=== PATIENT | male | born 1990 | race African-American/Black ===

== ENCOUNTER 2018-07-18 14:14 | Emergency (ER) | payer SELFPAY ==
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
== END 2018-07-18 16:37 | disposition home or self-care (01) ==
LOC: ER 14:14
DX: S00.90XA Unspecified superficial injury of unspecified part of head, initial encounter (principal); Y04.2XXA Assault by strike against or bumped into by another person, initial encounter; Y99.0 Civilian activity done for income or pay; N50.811 Right testicular pain
CPT/HCPCS: 70450; 76870; 99284

== ENCOUNTER 2018-07-18 19:10 | Emergency (ER) | payer SELFPAY ==
--- OUTSIDE RECORDS SUMMARY | 2018-07-18 19:12 | XMS REPORT ---
:1990 [facility] Address [address] [place] [address] Care Team Providers Name Role Phone Unavailable Unavailable Unavailable Payers Payer Name Policy Type Policy Number Effective Date Expiration Date Problems This patient has no known problems. Allergies, Adverse Reactions, Alerts Allergy Allergy Status Severity Reaction(s) Onset Inactive Treating Comments Name Type Date Date Clinician No Known DA Active U 2017-09 Allergies -23 00:00:0 0 Medications This patient has no known medications.
--- OUTSIDE RECORDS SUMMARY | 2018-07-18 19:12 | XMS REPORT | Clinical Summary ---
:1990 Author Organization [facility] Address [address] [place] [address] Care Team Providers Name Role Phone Asked, No Pcp Primary Care Provider Unavailable Allergies No Known Allergies Medications Not on file Active Problems Not on file Social History Tobacco Use Types Packs/Day Years Used Date Never Smoker Alcohol Use Drinks/Week oz/Week Comments No Sex Assigned at Date Recorded Not on file Job Start Date Occupation Industry Not on file Not on file Not on file Travel History Travel Start Travel End No recent travel history available. Last Filed Vital Signs Not on file Plan of Treatment Not on file Results Not on fileafter 07/17/2017 Advance Directives Patient has advance care planning documents on file. For more information, please contact:[facility] [place] [address]
[2018-07-18 19:57] LABS: Absolute Lymphocytes (CBC) 1.5 K/uL (0.7-4.9); Absolute Monocytes 0.5 K/uL (0.1-1.3); Absolute Neutrophil 8.8 K/uL (1.8-8.0); Basophils % 1.9 % (0-1.3); Hematocrit 42.7 % (39.6-49.0); Lymphocytes % 13.8 % (15.3-44.8); MPV 8.6 fL (7.6-11.3); Monocytes % 4.3 % (3.3-12.3); RBC Red Blood Cell Count 5.21 M/uL (4.33-5.43)
[2018-07-18 20:06] LABS: BUN Blood Urea Nitrogen 10 mg/dL (7-18); Bicarbonate 26 mmol/L (21-32); Glucose Level 97 mg/dL (74-106); Potassium 4.1 mmol/L (3.5-5.1); Sodium Level 138 mmol/L (136-145); Troponin (Emerg Dept Use Only) < 0.02 ng/mL (0.0-0.045)
--- NOTE | 2018-07-18 21:04 | RAD REPORT ---
EXAM DESCRIPTION: RAD - Chest Pa And Lat (2 Views) - 07/18/2018 7:59 pm CLINICAL HISTORY: Right-sided chest pain COMPARISON: None. TECHNIQUE: PA and lateral views of the chest were obtained. FINDINGS: The lungs are clear. Heart size is normal and central vasculature is within normal limit s. No pleural effusion or pneumothorax seen. No acute bony finding noted. No aortic abnormality. IMPRESSION: No acute cardiopulmonary process.
[2018-07-18 21:42] LABS: Blood Morphology Comment NOT SEEN (NOT SEEN); Platelet Estimate ADEQ; Urine White Blood Cell Casts OK
--- NOTE | 2018-07-18 22:38 | ER ---
Nurse's Notes [facility] Name: Louann Morataya Age: 27 yrs Sex: Male : 1990 Arrival Date: 07/18/2018 Time: 19:12 Bed 30 Private MD: Diagnosis: Chest pain, unspecified Presentation: 07/18 19:13 Presenting complaint: EMS states: patient complains of right sided non-radiating chest mg2 pain, headache, and palpitation today. EKG on scene is NSR. Transition of care: snf. Onset of symptoms was July 18, 2018. Risk Assessment: Do you want to hurt yourself or someone else? Patient reports no desire to harm self or others. Initial Sepsis Screen: Does the patient meet any 2 criteria? No. Patient's initial sepsis screen is negative. Does the patient have a suspected source of infection? No. Patient's initial sepsis screen is negative. Care prior to arrival: None. 19:13 Method Of Arrival: EMS: [facility] mg2 19:13 Acuity: JEROME 3 mg2 Historical: - Allergies: 19:19 No Known Allergies; mg2 - Home Meds: 19:19 None [Active]; mg2 - PMHx: 19:19 Hypertension; Asthma; mg2 - PSHx: 19:19 None; mg2 - Immunization history:: Flu vaccine is not up to date. - Social history:: Smoking status: Patient/guardian denies using tobacco, Patient/guardian denies using alcohol, street drugs, IV drugs. - Ebola Screening: : No symptoms or risks identified at this time. Screenin:20 Abuse screen: Denies threats or abuse. Denies injuries from another. Nutritional mg2 screening: No deficits noted. Tuberculosis screening: No symptoms or risk factors identified. Fall Risk None identified. Assessment: 19:33 General: Appears in no apparent distress. comfortable, Behavior is calm, cooperative. mg2 Pain: Complains of pain in chest, head Pain does not radiate. Pain currently is 10 out of 10 on a pain scale. Quality of pain is described as aching, Pain began gradually, Is intermittent. Neuro: Level of Consciousness is awake, alert, obeys commands, Oriented to person, place, time, situation. Neuro: Reports headache. Cardiovascular: Capillary refill < 3 seconds Patient's skin is warm and dry. Respiratory: Airway is patent Respiratory effort is even, unlabored, Respiratory pattern is regular, symmetrical. GI: No signs and/or symptoms were reported involving the gastrointestinal system. : No signs and/or symptoms were reported regarding the genitourinary system. EENT: No signs and/or symptoms were reported regarding the EENT system. Derm: Skin is intact, is healthy with good turgor, Skin is pink, warm \T\ dry. normal. Musculoskeletal: Circulation, motion, and sensation intact. Capillary refill < 3 seconds. Vital Signs: 19:18 BP 142 / 100; Pulse 78; Resp 18; Temp 99.1; Pulse Ox 99% ; Weight 111.13 kg; Height 5 mg2 ft. 6 in. (167.64 cm); Pain 10/10; 21:14 BP 144 / 80; Pulse 79; Resp 18; Pulse Ox 100% on R/A; Pain 0/10; mg2 22:27 Pulse 81; Resp 18; Pulse Ox 100% on R/A; mg2 22:58 BP 140 / 90; Pulse 70; Resp 18; Pulse Ox 100% on R/A; Pain 0/10; mg2 19:18 Body Mass Index 39.54 (111.13 kg, 167.64 cm) mg2 ED Course: 19:12 Patient arrived in ED. ds1 19:13 Mynor Castro RN is Primary Nurse. mg2 19:13 Deepak Olsen MD is Attending Physician. 19:18 Triage completed. mg2 19:20 Arm band placed on. mg2 19:33 No provider procedures requiring assistance completed. Inserted saline lock: 20 gauge mg2 in right antecubital area, using aseptic technique. Blood collected. 19:34 Patient has correct armband on for positive identification. mg2 19:57 XRAY Chest Pa And Lat (2 Views) In Process Unspecified. EDMS 22:58 IV discontinued, intact, bleeding controlled, No redness/swelling at site. Pressure mg2 dressing applied. Administered Medications: No medications were administered Outcome: 22:37 Discharge ordered by . 22:58 Discharged to Law Enforcement mg2 22:58 Condition: stable 22:58 Discharge instructions given to patient, Instructed on discharge instructions, follow up and referral plans. Demonstrated understanding of instructions, follow-up care. 22:59 Patient left the ED. mg2 Signatures: Dispatcher [employer] EDME Gardenia Ybarra ds1 OlsenDeepak MD MD gs [place]ose, Michele, RN RN mg2 Corrections: (The following items were deleted from the chart) 21:23 21:14 Pulse 79bpm; Resp 18bpm; Pulse Ox 100% RA; Pain 0/10; mg2 mg2
--- NOTE | 2018-07-18 22:38 | EDPHYS ---
Physician Documentation [facility] Name: Louann Morataya Age: 27 yrs Sex: Male : 1990 Arrival Date: 07/18/2018 Time: 19:12 Bed 30 Private MD: ED Physician Deepak Olsen HPI: 07/18 21:48 This 27 yrs old Black Male presents to ER via EMS with complaints of chest pain. gs 21:48 The patient or guardian reports chest pain that is located primarily in the anterior gs chest wall, right. The pain does not radiate. Associated signs and symptoms: Pertinent negatives: abdominal pain, diaphoresis, headache, nausea, near syncope, shortness of breath, vomiting. The chest pain is described as dull. Duration: The patient or guardian reports multiple episodes, that are intermittent, that wax and wane, with no pattern. Modifying factors: the symptoms are aggravated by twisting torso. Severity of pain: At its worst the pain was moderate in the emergency department the pain has improved moderately. The patient has experienced similar episodes in the past, a few times. Historical: - Allergies: 19:19 No Known Allergies; mg2 - Home Meds: 19:19 None [Active]; mg2 - PMHx: 19:19 Hypertension; Asthma; mg2 - PSHx: 19:19 None; mg2 - Immunization history:: Flu vaccine is not up to date. - Social history:: Smoking status: Patient/guardian denies using tobacco, Patient/guardian denies using alcohol, street drugs, IV drugs. - Ebola Screening: : No symptoms or risks identified at this time. ROS: 21:48 All other systems are negative. gs Exam: 22:07 Head/Face: Normocephalic, atraumatic. Eyes: Pupils equal round and reactive to light, gs extra-ocular motions intact. Lids and lashes normal. Conjunctiva and sclera are non-icteric and not injected. Cornea within normal limits. Periorbital areas with no swelling, redness, or edema. ENT: Nares patent. No nasal discharge, no septal abnormalities noted. Tympanic membranes are normal and external auditory canals are clear. Oropharynx with no redness, swelling, or masses, exudates, or evidence of obstruction, uvula midline. Mucous membranes moist. Neck: Trachea midline, no thyromegaly or masses palpated, and no cervical lymphadenopathy. Supple, full range of motion without nuchal rigidity, or vertebral point tenderness. No Meningismus. Chest/axilla: Normal chest wall appearance and motion. Nontender with no deformity. No lesions are appreciated. Cardiovascular: Regular rate and rhythm with a normal S1 and S2. No gallops, murmurs, or rubs. Normal PMI, no JVD. No pulse deficits. Respiratory: Lungs have equal breath sounds bilaterally, clear to auscultation and percussion. No rales, rhonchi or wheezes noted. No increased work of breathing, no retractions or nasal flaring. Abdomen/GI: Soft, non-tender, with normal bowel sounds. No distension or tympany. No guarding or rebound. No evidence of tenderness throughout. Back: No spinal tenderness. No costovertebral tenderness. Full range of motion. Skin: Warm, dry with normal turgor. Normal color with no rashes, no lesions, and no evidence of cellulitis. MS/ Extremity: Pulses equal, no cyanosis. Neurovascular intact. Full, normal range of motion. Neuro: Awake and alert, GCS 15, oriented to person, place, time, and situation. Cranial nerves II-XII grossly intact. Motor strength 5/5 in all extremities. Sensory grossly intact. Cerebellar exam normal. Normal gait. 22:07 ECG was reviewed by the Attending Physician. Vital Signs: 19:18 BP 142 / 100; Pulse 78; Resp 18; Temp 99.1; Pulse Ox 99% ; Weight 111.13 kg; Height 5 mg2 ft. 6 in. (167.64 cm); Pain 10/10; 21:14 BP 144 / 80; Pulse 79; Resp 18; Pulse Ox 100% on R/A; Pain 0/10; mg2 22:27 Pulse 81; Resp 18; Pulse Ox 100% on R/A; mg2 22:58 BP 140 / 90; Pulse 70; Resp 18; Pulse Ox 100% on R/A; Pain 0/10; mg2 19:18 Body Mass Index 39.54 (111.13 kg, 167.64 cm) mg2 MDM: 19:19 Patient medically screened. gs 22:35 Differential diagnosis: abnormal EKG, coronary artery disease chest wall pain. Data gs reviewed: vital signs, nurses notes, lab test result(s), EKG, radiologic studies. Counseling: I had a detailed discussion with the patient and/or guardian regarding: the historical points, exam findings, and any diagnostic results supporting the discharge/admit diagnosis, the presence of at least one elevated blood pressure reading (>120/80) during this emergency department visit, the need for outpatient follow up. Response to treatment: the patient's symptoms have resolved after treatment, the patient's pain is gone. 07/18 19:19 Order name: Basic Metabolic Panel; Complete Time: 21:12 07/18 19:19 Order name: CBC with Diff; Complete Time: 21:48 07/18 19:19 Order name: Troponin (emerg Dept Use Only); Complete Time: 21:12 07/18 19:19 Order name: EKG; Complete Time: 19:20 07/18 19:19 Order name: XRAY Chest Pa And Lat (2 Views); Complete Time: 21:12 07/18 20:06 Order name: CBC Smear Scan; Complete Time: 21:48 EDWA 07/18 19:19 Order name: Cardiac monitoring; Complete Time: 19:32 07/18 19:19 Order name: EKG - Nurse/Tech; Complete Time: 19:32 07/18 19:19 Order name: IV Saline Lock; Complete Time: 19:32 07/18 19:19 Order name: Labs collected and sent; Complete Time: 19:32 07/18 19:19 Order name: O2 Per Protocol; Complete Time: 19:33 07/18 19:19 Order name: O2 Sat Monitoring; Complete Time: 19:33 gs EC:39 Rate is 73 beats/min. Rhythm is regular. OK interval is normal. QRS interval is normal. gs QT interval is normal. T waves are Normal. No ST changes noted. Clinical impression: Normal ECG. Interpreted by me. Administered Medications: No medications were administered Disposition: 07/18/18 22:37 Discharged to Home. Impression: Chest pain, unspecified. - Condition is Stable. - Discharge Instructions: Nonspecific Chest Pain, Managing Your Hypertension. - Medication Reconciliation Form, Thank You Letter, Antibiotic Education, Prescription Opioid Use form. - Follow up: Private Physician; When: 2 - 3 days; Reason: Re-evaluation by your physician. Signatures: Dispatcher [facility] Olsen, Deepak, MD MD gs Gardose, Mynor, RN RN mg2 Corrections: (The following items were deleted from the chart) 22:59 22:37 07/18/2018 22:37 Discharged to Home. Impression: Chest pain, unspecified. mg2 Condition is Stable. Forms are Medication Reconciliation Form, Thank You Letter, Antibiotic Education, Prescription Opioid Use. Follow up: Private Physician; When: 2 - 3 days; Reason: Re-evaluation by your physician. gs
--- NOTE | 2018-07-19 06:19 | EKG ---
Test Date: 2018-07-18 Test Time: 19:24:46 Quality Control Expert: MG MEASUREMENT RESULTS: Intervals: Rate: 73 ID: [id number] QRSD: 82 QT: 376 QTc: 414 [place]: P: 12 ID: [id number] QRS: 20 T: 8 INTERPRETIVE STATEMENTS: Normal sinus rhythm Normal ECG No previous ECG available for comparison Electronically Signed On 07-19-18 06:14:40 RETURNED MATERIALS INSPECTOR by Pilo Peterson
== END 2018-07-18 22:59 | disposition home or self-care (01) ==
LOC: ER 19:10
DX: R07.9 Chest pain, unspecified (principal)
CPT/HCPCS: 36415; 71046; 80048; 84484; 85025; 93005; 99284

== ENCOUNTER 2018-12-15 11:29 | Emergency (ER) | payer SELFPAY ==
--- OUTSIDE RECORDS SUMMARY | 2018-12-15 11:31 | XMS REPORT | Clinical Summary ---
:1990 Author Organization [facility] Address [address] [place] [address] Care Team Providers Name Role Phone Asked, [...] Not on file Results Not on fileafter 12/14/2017 Advance Directives Patient has advance care planning documents on file. For more information, please contact:[facility] [place] [address]
--- OUTSIDE RECORDS SUMMARY | 2018-12-15 11:31 | XMS REPORT ---
:1990 [facility] Address [address] [place] [address] Care Team Providers Name Role Phone Unavailable [...]
[2018-12-15 12:33] LABS: Absolute Lymphocytes (CBC) 1.1 K/uL (0.7-4.9); Basophils % 0.4 % (0-1.3); Eosinophils % 0.1 % (0-4.4); Hematocrit 45.7 % (39.6-49.0); Lymphocytes % 16.9 % (15.3-44.8); MPV 8.5 fL (7.6-11.3); Monocytes % 9.5 % (3.3-12.3)
[2018-12-15 12:43] LABS: Magnesium 2.3 mg/dL (1.8-2.4); Potassium 4.6 mmol/L (3.5-5.1)
--- NOTE | 2018-12-15 13:03 | ER ---
Nurse's Notes [facility] Name: Louann Morataya Age: 27 yrs Sex: Male : 1990 Arrival Date: 12/15/2018 Time: 11:30 Bed 4 Private MD: Diagnosis: Palpitations Presentation: 12/15 11:31 Presenting complaint: EMS states: In court today and found out he had some outstanding ss warrants, then suddenly experiences palpitations and generalized weakness. Patient reports he has had intermittent palpitations for years, but has not seen anybody for it yet. Transition of care: patient was not received from another setting of care. Onset of symptoms is unknown. Risk Assessment: Do you want to hurt yourself or someone else? Patient reports no desire to harm self or others. Initial Sepsis Screen: Does the patient meet any 2 criteria? No. Patient's initial sepsis screen is negative. Does the patient have a suspected source of infection? No. Patient's initial sepsis screen is negative. Note Patient is in custody of [facility]S [facility]EDS AT [facility]. Officer remains with patient. Care prior to arrival: None. 11:31 Method Of Arrival: Law Enforcement ss 11:31 Acuity: JEROME 3 ss Triage Assessment: 11:38 General: Appears in no apparent distress. uncomfortable, Behavior is calm, cooperative, hj appropriate for age. Pain: Denies pain. Historical: - Allergies: 11:34 No Known Allergies; ss - PMHx: 11:34 Asthma; Hypertension; ss - PSHx: 11:34 Hernia repair; Appendectomy; ss - Immunization history:: Adult Immunizations up to date. - Social history:: Smoking status: Patient/guardian denies using tobacco, Patient/guardian denies using alcohol, street drugs. - Ebola Screening: : Patient denies exposure to infectious person Patient denies travel to an Ebola-affected area in the 21 days before illness onset. Screenin:38 Abuse screen: Denies threats or abuse. Denies injuries from another. Nutritional hj screening: No deficits noted. Tuberculosis screening: No symptoms or risk factors identified. Fall Risk None identified. Assessment: 11:30 General: SEE TRIAGE NOTE. bp 13:18 Reassessment: PT D/C WITH [employer], DX WITH PALPITATIONS. bp Vital Signs: 11:34 BP 155 / 98; Pulse 94; Resp 16; Temp 98.2(TE); Pulse Ox 97% on R/A; Weight 116.12 kg; Height 5 ft. 6 in. (167.64 cm); Pain 0/10; 13:10 BP 149 / 94; Pulse 88; Resp 16; Pulse Ox 97% ; bp 11:34 Body Mass Index 41.32 (116.12 kg, 167.64 cm) ED Course: 11:30 Patient arrived in ED. 11:30 Anthony Cordon PA is PHCP. jr8 11:30 Karthikeyan Bass MD is Attending Physician. jr8 11:33 Triage completed. ss 11:34 Arm band placed on right wrist. 11:38 Gabriel Prasad, RN is Primary Nurse. 11:39 Patient has correct armband on for positive identification. Bed in low position. Call hj light in reach. Side rails up X 1. Security at bedside. 12:10 EKG done, by dental technology advisor. reviewed by Anthony QUIROZ. 3 12:20 Initial lab(s) drawn, by ma, sent to lab. Inserted saline lock: 22 gauge in right hj antecubital area, using aseptic technique. Blood collected. 13:19 No provider procedures requiring assistance completed. IV discontinued, intact, bp bleeding controlled, No redness/swelling at site. Pressure dressing applied. Administered Medications: No medications were administered Outcome: 13:02 Discharge ordered by . jr8 13:19 Discharged to Law Enforcement bp 13:19 Condition: stable 13:19 Discharge instructions given to patient, police, Instructed on discharge instructions, follow up and referral plans. Demonstrated understanding of instructions, follow-up care. 13:20 Patient left the ED. bp Signatures: Lea Ambrocio, RN RN Anthony Cordon PA PA Gabriel Pedro RN RN Vijay Clark RN RN bp Montes, Shakira 3
--- NOTE | 2018-12-15 13:03 | EDPHYS ---
Physician Documentation [facility] Name: Louann Morataya Age: 27 yrs Sex: Male : 1990 Arrival Date: 12/15/2018 Time: 11:30 Bed 4 Private MD: ED Physician Karthikeyan Bass HPI: 12/15 12:20 This 27 yrs old Black Male presents to ER via Law Enforcement with complaints of jr8 Palpitations. 12:20 Onset: The symptoms/episode began/occurred acutely, today. Duration: The patient or jr8 guardian reports a single episode, that is now resolved. Modifying factors: The symptoms are aggravated by anxiety, The symptoms are alleviated by rest. Associated signs and symptoms: Pertinent positives: anxiety, near-syncope. Severity of symptoms: At their worst the symptoms were moderate in the emergency department the symptoms have resolved. The patient has experienced similar episodes in the past, multiple times. The patient has not recently seen a physician. Patient stated that he gets anxious and has palpitations and the feeling of wanting to pass out for some time. Stated that while being arrested today started to have symptoms. Was brought to ED at that time. Stated that he has not followed up for symptoms in past due to financial constraints . Historical: - Allergies: 11:34 No Known Allergies; ss - PMHx: 11:34 Asthma; Hypertension; ss - PSHx: 11:34 Hernia repair; Appendectomy; ss - Immunization history:: Adult Immunizations up to date. - Social history:: Smoking status: Patient/guardian denies using tobacco, Patient/guardian denies using alcohol, street drugs. - Ebola Screening: : Patient denies exposure to infectious person Patient denies travel to an Ebola-affected area in the 21 days before illness onset. ROS: 12:20 Eyes: Negative for injury, pain, redness, and discharge, ENT: Negative for injury, jr8 pain, and discharge, Neck: Negative for injury, pain, and swelling, Respiratory: Negative for shortness of breath, cough, wheezing, and pleuritic chest pain, Abdomen/GI: Negative for abdominal pain, nausea, vomiting, diarrhea, and constipation, Back: Negative for injury and pain, MS/Extremity: Negative for injury and deformity, Skin: Negative for injury, rash, and discoloration. 12:20 Cardiovascular: Positive for palpitations, Negative for chest pain, edema, orthopnea, paroxysmal nocturnal dyspnea. 12:20 Neuro: Positive for near syncope, Negative for altered mental status, dizziness, gait disturbance, headache, hearing loss, loss of consciousness, numbness, seizure activity, speech changes, syncope, tingling, tinnitus, tremor, visual changes, weakness. Exam: 13:01 Eyes: Pupils equal round and reactive to light, extra-ocular motions intact. Lids and jr8 lashes normal. Conjunctiva and sclera are non-icteric and not injected. Cornea within normal limits. Periorbital areas with no swelling, redness, or edema. ENT: Nares patent. No nasal discharge, no septal abnormalities noted. Tympanic membranes are normal and external auditory canals are clear. Oropharynx with no redness, swelling, or masses, exudates, or evidence of obstruction, uvula midline. Mucous membranes moist. Neck: Trachea midline, no thyromegaly or masses palpated, and no cervical lymphadenopathy. Supple, full range of motion without nuchal rigidity, or vertebral point tenderness. No Meningismus. Cardiovascular: Regular rate and rhythm with a normal S1 and S2. No gallops, murmurs, or rubs. Normal PMI, no JVD. No pulse deficits. Respiratory: Lungs have equal breath sounds bilaterally, clear to auscultation and percussion. No rales, rhonchi or wheezes noted. No increased work of breathing, no retractions or nasal flaring. Abdomen/GI: Soft, non-tender, with normal bowel sounds. No distension or tympany. No guarding or rebound. No evidence of tenderness throughout. Back: No spinal tenderness. No costovertebral tenderness. Full range of motion. Skin: Warm, dry with normal turgor. Normal color with no rashes, no lesions, and no evidence of cellulitis. MS/ Extremity: Pulses equal, no cyanosis. Neurovascular intact. Full, normal range of motion. Neuro: Awake and alert, GCS 15, oriented to person, place, time, and situation. Cranial nerves II-XII grossly intact. Motor strength 5/5 in all extremities. Sensory grossly intact. Cerebellar exam normal. Normal gait. Vital Signs: 11:34 BP 155 / 98; Pulse 94; Resp 16; Temp 98.2(TE); Pulse Ox 97% on R/A; Weight 116.12 kg; ss Height 5 ft. 6 in. (167.64 cm); Pain 0/10; 13:10 BP 149 / 94; Pulse 88; Resp 16; Pulse Ox 97% ; bp 11:34 Body Mass Index 41.32 (116.12 kg, 167.64 cm) ss MDM: 11:30 Patient medically screened. 13:01 Data reviewed: vital signs, nurses notes, lab test result(s), EKG, and as a result, I 8 will discharge patient. Data interpreted: Pulse oximetry: on room air is 97 %. Interpretation: normal. Counseling: I had a detailed discussion with the patient and/or guardian regarding: the historical points, exam findings, and any diagnostic results supporting the discharge/admit diagnosis, lab results, the need for outpatient follow up, a joint filler, a family practitioner, to return to the emergency department if symptoms worsen or persist or if there are any questions or concerns that arise at home. ED course: Patient with stable VS. No ECG changes. Labs unremarkable. Recommended f/u with joint filler at this point. . 12/15 11:57 Order name: CBC with Diff; Complete Time: 12:48 12/15 11:57 Order name: Basic Metabolic Panel; Complete Time: 12:48 [facility] 12/15 11:57 Order name: Magnesium; Complete Time: 12:48 [facility] 12/15 11:57 Order name: EKG - Nurse/Tech; Complete Time: 11:59 12/15 11:57 Order name: EKG; Complete Time: 11:58 Administered Medications: No medications were administered Disposition: 12/16 09:42 Co-signature as Attending Physician, Karthikeyan Bass MD I agree with the assessment and wa plan of care. Disposition: 12/15/18 13:02 Discharged to Home. Impression: Palpitations. - Condition is Stable. - Discharge Instructions: Holter Monitoring, Palpitations. - Medication Reconciliation Form, Thank You Letter, Antibiotic Education, Prescription Opioid Use form. - Follow up: Private Physician; When: 5 - 6 days; Reason: Recheck today's complaints, Continuance of care, Re-evaluation by your physician. - Problem is new. - Symptoms have improved. Signatures: Dispatcher [facility] Lea Ambrocio RN RN Anthony Cordon PA PA jr8 Karthikeyan Bass MD MD wa Peltier, Brian, RN RN bp Corrections: (The following items were deleted from the chart) 12/15 13:20 13:02 12/15/2018 13:02 Discharged to Home. Impression: Palpitations. Condition is bp Stable. Forms are Medication Reconciliation Form, Thank You Letter, Antibiotic Education, Prescription Opioid Use. Follow up: Private Physician; When: 5 - 6 days; Reason: Recheck today's complaints, Continuance of care, Re-evaluation by your physician. Problem is new. Symptoms have improved. jr8
--- NOTE | 2018-12-16 06:57 | EKG ---
Test Date: 2018-12-15 Test Time: 11:33:04 Medical Director/Head Team Physician: GUNNAR MEASUREMENT RESULTS: Intervals: Rate: 88 WI: 152 QRSD: 78 QT: 328 QTc: 396 [place]: P: 70 WI: 152 QRS: 59 T: 11 INTERPRETIVE STATEMENTS: Normal sinus rhythm Normal ECG Compared to ECG 07/18/2018 19:24:46 No significant changes Electronically Signed On 12-16-18 06:53:37 CDT by Uzair Tenorio
== END 2018-12-15 13:20 | disposition home or self-care (01) ==
LOC: ER 11:29
DX: R00.2 Palpitations (principal); I10 Essential (primary) hypertension
CPT/HCPCS: 36415; 80048; 83735; 85025; 93005; 99284

== ENCOUNTER 2018-12-15 18:45 | Emergency (ER) | payer SELFPAY ==
--- OUTSIDE RECORDS SUMMARY | 2018-12-15 18:47 | XMS REPORT ---
:1990 [facility] Address [address] [place] [address] Care Team Providers Name Role Phone Unavailable [...]
--- OUTSIDE RECORDS SUMMARY | 2018-12-15 18:47 | XMS REPORT | Clinical Summary ---
:1990 Author Organization [facility] Address [address] [place] [address] Care Team Providers Name Role Phone Asked, [...] documents on file. For more information, please contact:[facility] [place] [address]
--- NOTE | 2018-12-15 19:16 | ER ---
Nurse's Notes [facility] Name: Louann Morataya Age: 27 yrs Sex: Male : 1990 Arrival Date: 12/15/2018 Time: 18:47 Bed 25 Private MD: Diagnosis: Palpitations Presentation: 12/15 18:48 Presenting complaint: EMS states: Palpitations while in [facility]. Seen in this ER today for aj same complaint and released back to [facility]. Denies chest pain. Transition of care: patient was not received from another setting of care. Onset of symptoms was December 15, 2018. Risk Assessment: Do you want to hurt yourself or someone else? Patient reports no desire to harm self or others. Initial Sepsis Screen: Does the patient meet any 2 criteria? No. Patient's initial sepsis screen is negative. Does the patient have a suspected source of infection? No. Patient's initial sepsis screen is negative. Care prior to arrival: None. 18:48 Method Of Arrival: EMS: [facility] 18:48 Acuity: JEROME 4 aj Triage Assessment: 18:50 General: Appears in no apparent distress. comfortable, Behavior is calm, cooperative, aj appropriate for age. Pain: Denies pain. Neuro: Level of Consciousness is awake, alert, obeys commands, Oriented to person, place, time, situation, Appropriate for age. Cardiovascular: Reports palpitations, Capillary refill < 3 seconds in bilateral fingers Patient's skin is warm and dry. Respiratory: Airway is patent Respiratory effort is even, unlabored, Respiratory pattern is regular, symmetrical. Derm: Skin is intact, is healthy with good turgor, Skin is pink, warm \T\ dry. normal. Historical: - Allergies: 18:50 No Known Allergies; aj - Home Meds: 18:50 Clonidine Oral [Active]; Albuterol Inhl [Active]; aj - PMHx: 18:50 Asthma; Hypertension; aj - PSHx: 18:50 Hernia repair; Appendectomy; aj - Immunization history:: Adult Immunizations up to date. - Social history:: Smoking status: Patient/guardian denies using tobacco, Patient/guardian denies using alcohol, street drugs, The patient lives with family. - Ebola Screening: : Patient negative for fever greater than or equal to 101.5 degrees Fahrenheit, and additional compatible Ebola Virus Disease symptoms Patient denies exposure to infectious person Patient denies travel to an Ebola-affected area in the 21 days before illness onset No symptoms or risks identified at this time. - Family history:: not pertinent. Screenin:23 Abuse screen: Denies threats or abuse. Denies injuries from another. Nutritional aj screening: No deficits noted. Tuberculosis screening: No symptoms or risk factors identified. Fall Risk None identified. Assessment: 19:23 Reassessment: No changes from previously documented assessment. aj Vital Signs: 18:50 BP 145 / 85; Pulse 83; Resp 16; Temp 98.4; Pulse Ox 98% on R/A; Weight 116.12 kg; aj Height 5 ft. 6 in. (167.64 cm); 19:23 BP 136 / 86; Pulse 84; Resp 16; Pulse Ox 100% on R/A; aj 18:50 Body Mass Index 41.32 (116.12 kg, 167.64 cm) aj ED Course: 18:47 Patient arrived in ED. aj 18:49 Triage completed. aj 18:50 Arm band placed on left wrist. Patient placed in an exam room, on a stretcher. aj 18:51 Tova Wilson MD is Attending Physician. ma2 18:58 Saima Barton RN is Primary Nurse. aj 19:14 EKG done, by ED staff, reviewed by Tova Wilson MD. aj 19:23 Patient has correct armband on for positive identification. aj 19:23 No provider procedures requiring assistance completed. Patient did not have IV access aj during this emergency room visit. Administered Medications: 19:15 CANCELLED (palpitation resolved): Ativan 1 mg PO once ma2 Outcome: 19:16 Discharge ordered by . ma2 19:23 Discharged to Law Enforcement aj 19:23 Condition: good 19:23 Discharge instructions given to patient, Instructed on discharge instructions, follow up and referral plans. Demonstrated understanding of instructions, follow-up care. 19:24 Patient left the ED. aj Signatures: Saima Barton, RN RN Tova Nuñez MD MD ma2
--- NOTE | 2018-12-15 19:17 | EDPHYS ---
Physician Documentation [facility] Name: Louann Morataya Age: 27 yrs Sex: Male : 1990 Arrival Date: 12/15/2018 Time: 18:47 Bed 25 Private MD: ED Physician Tova Wilson HPI: 12/15 19:09 This 27 yrs old Black Male presents to ER via EMS with complaints of Palpitations. ma2 19:09 The patient presents with a history of heart racing. Onset: The symptoms/episode ma2 began/occurred gradually, 1 day(s) ago. Associated signs and symptoms: Pertinent negatives: anxiety, fever, nausea, near-syncope. Severity of symptoms: At their worst the symptoms were mild in the emergency department the symptoms are unchanged. The patient has experienced similar episodes in the past. Historical: - Allergies: 18:50 No Known Allergies; aj - Home Meds: 18:50 Clonidine Oral [Active]; Albuterol Inhl [Active]; aj - PMHx: 18:50 Asthma; Hypertension; aj - PSHx: 18:50 Hernia repair; Appendectomy; aj - Immunization history:: Adult Immunizations up to date. - Social history:: Smoking status: Patient/guardian denies using tobacco, Patient/guardian denies using alcohol, street drugs, The patient lives with family. - Ebola Screening: : Patient negative for fever greater than or equal to 101.5 degrees Fahrenheit, and additional compatible Ebola Virus Disease symptoms Patient denies exposure to infectious person Patient denies travel to an Ebola-affected area in the 21 days before illness onset No symptoms or risks identified at this time. - Family history:: not pertinent. ROS: 19:09 Constitutional: Negative for fever, chills, and weight loss, Cardiovascular: Negative ma2 for chest pain, palpitations, and edema, Respiratory: Negative for shortness of breath, cough, wheezing, and pleuritic chest pain, Abdomen/GI: Negative for abdominal pain, nausea, diarrhea, and constipation. 19:09 Cardiovascular: Positive for palpitations, Negative for edema. 19:09 All other systems are negative. Exam: 19:09 Constitutional: This is a well developed, well nourished patient who is awake, alert, ma2 and in no acute distress. Chest/axilla: Normal chest wall appearance and motion. Nontender with no deformity. No lesions are appreciated. Cardiovascular: Regular rate and rhythm with a normal S1 and S2. No gallops, murmurs, or rubs. Normal PMI, no JVD. No pulse deficits. Respiratory: Lungs have equal breath sounds bilaterally, clear to auscultation and percussion. No rales, rhonchi or wheezes noted. No increased work of breathing, no retractions or nasal flaring. Abdomen/GI: Soft, non-tender, with normal bowel sounds. No distension or tympany. No guarding or rebound. No evidence of tenderness throughout. MS/ Extremity: Pulses equal, no cyanosis. Neurovascular intact. Full, normal range of motion. Neuro: Awake and alert, GCS 15, oriented to person, place, time, and situation. Cranial nerves II-XII grossly intact. Motor strength 5/5 in all extremities. Sensory grossly intact. Cerebellar exam normal. Normal gait. Vital Signs: 18:50 BP 145 / 85; Pulse 83; Resp 16; Temp 98.4; Pulse Ox 98% on R/A; Weight 116.12 kg; aj Height 5 ft. 6 in. (167.64 cm); 19:23 BP 136 / 86; Pulse 84; Resp 16; Pulse Ox 100% on R/A; aj 18:50 Body Mass Index 41.32 (116.12 kg, 167.64 cm) aj MDM: 18:51 Patient medically screened. ma2 19:09 Differential diagnosis: arrythmia, dehydration, stress disorder. Data reviewed: vital ma2 signs, nurses notes. Counseling: I had a detailed discussion with the patient and/or guardian regarding: the historical points, exam findings, and any diagnostic results supporting the discharge/admit diagnosis, the presence of at least one elevated blood pressure reading (>120/80) during this emergency department visit, the need for outpatient follow up. Response to treatment: the patient's symptoms have markedly improved after treatment. 19:16 ED course: he takes albuterol and get palpitation right after, it resolved now, i ma2 explained that this is likely a side effect of albuterol . 12/15 18:51 Order name: EKG - Nurse/Tech; Complete Time: 19:22 ma2 Administered Medications: 19:15 CANCELLED (palpitation resolved): Ativan 1 mg PO once ma2 Disposition: 12/15/18 19:16 Discharged to Home. Impression: Palpitations. - Condition is Stable. - Discharge Instructions: Palpitations. - Medication Reconciliation Form, Thank You Letter, Antibiotic Education, Prescription Opioid Use form. - Follow up: Private Physician; When: Tomorrow; Reason: Continuance of care. Signatures: Saima Barton RN RN aj Alzahri, Mohammad, MD MD ga2 Corrections: (The following items were deleted from the chart) 19:15 19:10 Ativan 1 mg PO once ordered. ma2 ma2 19:24 19:16 12/15/2018 19:16 Discharged to Home. Impression: Palpitations. Condition is aj Stable. Forms are Medication Reconciliation Form, Thank You Letter, Antibiotic Education, Prescription Opioid Use. Follow up: Private Physician; When: Tomorrow; Reason: Continuance of care. ma2
--- NOTE | 2018-12-17 07:05 | EKG ---
Test Date: 2018-12-15 Test Time: 19:10:55 [employer] Source Intelligence Analyst: TEENA MEASUREMENT RESULTS: Intervals: Rate: 88 [place]: 152 QRSD: 80 QT: 354 QTc: 428 [place]: P: 32 [place]: 152 QRS: -4 T: 1 INTERPRETIVE STATEMENTS: Normal sinus rhythm with sinus arrhythmia Nonspecific T wave abnormality Abnormal ECG Compared to ECG 12/15/2018 11:33:04 T-wave abnormality now present Electronically Signed On 12-17-18 07:02:38 CDT by Uzair Tenorio
== END 2018-12-15 19:24 | disposition home or self-care (01) ==
LOC: ER 18:45
DX: R00.2 Palpitations (principal); I10 Essential (primary) hypertension; J45.909 Unspecified asthma, uncomplicated
CPT/HCPCS: 93005; 99283